=== PATIENT | male | born 1975 | race Two or more races ===

== ENCOUNTER 2019-01-20 10:59 | Observation (INO) | payer SELFPAY ==
--- NOTE | 2019-01-20 11:39 | ER Document Report ---
ED Medical Screen (RME) - General Stated Complaint: HEADACHE Time Seen by Provider: 01/20/19 11:36 Primary Care Provider: CESAR DICKINSON MD [Primary Care Provider] - Follow up as needed Mode of Arrival: Ambulatory Information source: Patient Notes: This 43-year-old male presents as a direct admit for Dr. Arzate with recurrent epistaxis and headache. Dr. Arzate has already put orders in. Patient denies suicidal or homicidal thoughts. I have greeted and performed a rapid initial assessment of this patient. A comprehensive ED assessment and evaluation of the patient, analysis of test results and completion of the medical decision making process will be conducted by additional ED providers. Dictation of this chart was performed using voice recognition software; therefore, there may be some unintended grammatical errors. - Related Data Allergies/Adverse Reactions: No Known Allergies Allergy (Verified 01/20/19 11:32) Past Medical History - Past Medical History Cardiac Medical History: Reports: Hx Hypertension GI Medical History: Reports: Hx Gastroesophageal Reflux Disease Past Surgical History: Reports: Hx Appendectomy - Immunizations Hx Diphtheria, Pertussis, Tetanus Vaccination: No Physical Exam - Vital signs Vitals: Temp Pulse Resp BP Pulse Ox 98.3 F 65 18 135/94 H 96 01/20/19 11:22 01/20/19 11:22 01/20/19 11:22 01/20/19 11:22 01/20/19 11:22 Course - Vital Signs Vital signs: Temp Pulse Resp BP Pulse Ox 98.3 F 65 18 135/94 H 96 01/20/19 11:22 01/20/19 11:22 01/20/19 11:22 01/20/19 11:22 01/20/19 11:22 Doctor's Discharge - Discharge Referrals: CESAR DICKINSON MD [Primary Care Provider] - Follow up as needed
[2019-01-20 12:40] LABS: ABSOLUTE BASOPHILS # (AUTO) 0.1 10^3/uL (0.0-0.2); ABSOLUTE EOSINOPHILS # (AUTO) 0.4 10^3/uL (0.0-0.6); ABSOLUTE LYMPHOCYTES (AUTO) 3.2 10^3/uL (0.5-4.7); ABSOLUTE MONOCYTES (AUTO) 0.6 10^3/uL (0.1-1.4); ABSOLUTE NEUT (AUTO) 3.8 10^3/uL (1.7-8.2); BASOPHILS % (AUTO) 0.7 % (0-2); EOSINOPHILS % (AUTO) 5.2 % (0-6); HEMATOCRIT 40.9 % (37.9-51.0); HEMOGLOBIN 14.1 g/dL (13.5-17.0); LYMPHOCYTES % (AUTO) 39.4 % (13-45); MEAN CORPUSCULAR HEMOGLOBIN 29.4 pg (27.0-33.4); MEAN CORPUSCULAR HGB CONC 34.5 g/dL (32.0-36.0); MEAN CORPUSCULAR VOLUME 85 fl (80-97); PLATELET COUNT 314 10^3/uL (150-450); RED CELL DISTRIBUTION WIDTH 13.5 % (11.5-14.0); SEGMENTED NEUTROPHILS % (AUTO) 47.7 % (42-78); TOTAL CELLS COUNTED % (AUTO) 100 %
[2019-01-20 13:10] LABS: ALBUMIN 4.9 g/dL (3.5-5.0); ALKALINE PHOSPHATASE 71 U/L (38-126); ANION GAP 10 (5-19); ASPARTATE AMINO TRANSFERASE 23 U/L (17-59); BILIRUBIN,DIRECT 0.1 mg/dL (0.0-0.4); BILIRUBIN,TOTAL 0.4 mg/dL (0.2-1.3); BLOOD UREA NITROGEN 16 mg/dL (7-20); CALCIUM 9.9 mg/dL (8.4-10.2); CARBON DIOXIDE 28 mmol/L (22-30); CHLORIDE 102 mmol/L (98-107); CREATINE KINASE 215 U/L (55-170); GLUCOSE 105 mg/dL (75-110); POTASSIUM 4.3 mmol/L (3.6-5.0); TOTAL PROTEIN 8.5 g/dL (6.3-8.2)
[2019-01-20] MEDS ORDERED: CHLORPHENIRAMINE MALEATE 4 MG TABLET PO PRN (15:38)
[2019-01-20] MEDS ORDERED: ACETAMINOPHEN 325 MG TABLET PO PRN (15:41)
[2019-01-20] MEDS ORDERED: ONDANSETRON HCL INJ/PF 4 MG/2 ML SDV IV PRN (15:41)
[2019-01-20] MEDS: AMLODIPINE BESYLATE 10 MG TABLET PO SCH (16:36)
[2019-01-20] MEDS ORDERED: (PENDING PHARMACY ID) (Diclofenac Sodium [Voltaren] 1 GM) TOP SCH (18:00)
--- NOTE | 2019-01-20 19:00 | RADIOLOGY REPORT (SQ) ---
EXAM DESCRIPTION: CT HEAD COMBO COMPLETED DATE/TIME: 01/20/2019 6:42 pm REASON FOR STUDY: headache COMPARISON: None. TECHNIQUE: Axial images acquired through the brain without and with intravenous contrast. Images re viewed with bone, brain and subdural windows. Additional sagittal and coronal reconstructions were g enerated. Images stored on PACS. All CT scanners at this facility use dose modulation, iterative reconstruction, and/or weight based d osing when appropriate to reduce radiation dose to as low as reasonably achievable (ALARA). [facility]: Dose Right [facility]: CareDose [facility]: Dose Right [facility]: Teradose 4D [facility]: LEID Products CONTRAST TYPE AND DOSE: contrast/concentration: Isovue 350.00 mg/ml; Total Contrast Delivered: 50.0 ml; Total Saline Delivered: 50.0 ml RENAL FUNCTION: BUN 16 creatinine 0.87. RADIATION DOSE: CT Rad equipment meets quality standard of care and radiation dose reduction techniq ues were employed. CTDIvol: 53.2 mGy. DLP: 2194 mGy-cm.. LIMITATIONS: None. FINDINGS: VENTRICLES: Normal size and contour. CEREBRUM: No masses. No hemorrhage. No midline shift. Normal buckner/white matter differentiation. No ev idence for acute infarction. No enhancing lesions. CEREBELLUM: No masses. No hemorrhage. No alteration of density. No evidence for acute infarction. No enhancing lesions. EXTRA-AXIAL SPACES: No fluid collections. No enhancing lesions. ORBITS AND GLOBE: No intra- or extraconal masses. Normal contour of globe without masses. CALVARIUM: No fracture. PARANASAL SINUSES: No fluid. Small nodules in the floor of the maxillary sinuses. SOFT TISSUES: No mass or hematoma. OTHER: No other significant finding. IMPRESSION: NORMAL BRAIN CT WITHOUT AND WITH CONTRAST. EVIDENCE OF ACUTE STROKE: NO. TECHNICAL DOCUMENTATION: JOB ID: [id number] Quality ID # [id number]: Final reports with documentation of one or more dose reduction techniques (e.g., Au tomated exposure control, adjustment of the mA and/or kV according to patient size, use of iterative reconstruction technique) 2010 [employer]- All Rights Reserved Reading location - IP/workstation name: [email or web address]
--- NOTE | 2019-01-20 20:03 | PDOC H&P ---
History of Present Illness Admission Date/PCP: 01/20/19 14:06 BECKY HINKLE MD History of Present Illness: REA ORTIZ is a 43 year old male, He came to the office for evalu ation of right nosebleed, he was in the office last week when he had epistaxis of the right nose he was treated in the office with epinephrine package with complete cessation of the bleed, on inspection of his nose at that time there was no obvious lesion the mucosa was hemorrhagic particularly around the little area of the mucosa of the nose. Patient complained of a headache , facial pain he was very anxious, he was requesting to be admitted for further evaluation. He was admitted to the hospital for further evaluation, a CAT scan of the head was obtained, it was negative for any significant lesion there is no neoplasm ,it did not show any acute pathology Past Medical History Cardiac Medical History: Reports: Hypertension GI Medical History: Reports: Gastroesophageal Reflux Disease Past Surgical History Past Surgical History: Reports: Appendectomy Social History Smoking Status: Never Smoker Frequency of Alcohol Use: None Hx Recreational Drug Use: No Drugs: None Hx Prescription Drug Abuse: No Family History Family History: Other - UNKNOWN Parental Family History Reviewed: Yes Children Family History Reviewed: Yes Sibling(s) Family History Reviewed.: Yes Medication/Allergy Home Medications: RX: Amlodipine Besylate [Norvasc 10 mg Tablet] 10 mg PO DAILY 01/20/19 RX: Chlorpheniramine Maleate [Chlor-Trimeton 4 mg Tablet] 4 mg PO Q6HP PRN 01/20/19 RX: Diclofenac Sodium [Voltaren] 1 gm TOP QID 01/20/19 RX: Metoprolol Tartrate [Lopressor 50 mg Tablet] 50 mg PO Q12 01/20/19 Allergies/Adverse Reactions: No Known Allergies Allergy (Verified 01/20/19 11:32) Review of Systems Constitutional: ABSENT: chills, fever(s), headache(s), weight gain, weight loss Eyes: ABSENT: visual disturbances Ears: ABSENT: hearing changes Nose, Mouth, and Throat: PRESENT: headache(s), other - Right nosebleed Cardiovascular: ABSENT: chest pain, dyspnea on exertion, edema, orthropnea, palpitations Respiratory: ABSENT: cough, hemoptysis Gastrointestinal: ABSENT: abdominal pain, constipation, diarrhea, hematemesis, hematochezia, nausea, vomiting Genitourinary: ABSENT: dysuria, hematuria Musculoskeletal: ABSENT: joint swelling Integumentary: ABSENT: rash, wounds Neurological: ABSENT: abnormal gait, abnormal speech, confusion, dizziness, focal weakness, syncope Psychiatric: ABSENT: anxiety, depression, homidical ideation, suicidal ideation Endocrine: ABSENT: cold intolerance, heat intolerance, menstrual abnormalities, polydipsia, polyuria Hematologic/Lymphatic: ABSENT: easy bleeding, easy bruising, lymphadenopathy Physical Exam Vital Signs: Temp Pulse Resp BP Pulse Ox 97.6 F 65 16 145/93 H 100 01/20/19 14:31 01/20/19 14:31 01/20/19 14:31 01/20/19 14:31 01/20/19 14:31 Intake & Output 01/19/19 01/20/19 01/21/19 06:59 06:59 06:59 Weight 97.6 kg General appearance: PRESENT: no acute distress, well-developed, well-nourished Head exam: PRESENT: atraumatic, normocephalic Eye exam: PRESENT: conjunctiva pink, EOMI, PERRLA. ABSENT: scleral icterus Ear exam: PRESENT: normal external ear exam Mouth exam: PRESENT: moist, tongue midline Neck exam: PRESENT: full ROM Respiratory exam: PRESENT: clear to auscultation rubi Cardiovascular exam: PRESENT: RRR, +S1, +S2 Vascular exam: PRESENT: normal capillary refill GI/Abdominal exam: PRESENT: normal bowel sounds, soft Rectal exam: PRESENT: deferred Neurological exam: PRESENT: alert, awake, oriented to person, oriented to place, oriented to time, oriented to situation, CN II-XII grossly intact Psychiatric exam: PRESENT: appropriate affect, normal mood Skin exam: PRESENT: dry, intact, warm Results Laboratory Results: 01/20/19 12:04 01/20/19 12:04 01/20/19 01/20/19 12:04 12:04 WBC 8.0 RBC 4.80 Hgb 14.1 Hct 40.9 MCV 85 MCH 29.4 MCHC 34.5 RDW 13.5 Plt Count 314 Seg Neutrophils % 47.7 Sodium 140.3 Potassium 4.3 Chloride 102 Carbon Dioxide 28 Anion Gap 10 BUN 16 Creatinine 0.87 Est GFR ( Amer) > 60 Glucose 105 Calcium 9.9 Total Bilirubin 0.4 AST 23 Alkaline Phosphatase 71 Total Protein 8.5 H Albumin 4.9 01/20/19 01/20/19 12:04 12:04 Creatine Kinase 215 H Troponin I < 0.012 Impressions: Head CT 01/20/19 11:05 IMPRESSION: NORMAL BRAIN CT WITHOUT AND WITH CONTRAST. EVIDENCE OF ACUTE STROKE: NO. Assessment & Plan - Diagnosis (1) Epistaxis Is this a current diagnosis for this admission?: Yes Plan: Patient with a nosebleed, there is no obvious active bleed at this time, ENT consultation is obtained, he probably could be seen outpatient for the evaluation, the CAT scan of the head did not demonstrate any acute pathology. (2) Headache Qualifiers: Headache type: unspecified Headache chronicity pattern: unspecified pattern Intractability: not intractable Qualified Code(s): R51 - Headache Is this a current diagnosis for this admission?: Yes
[2019-01-20] MEDS: METOPROLOL TARTRATE 50 MG TABLET PO SCH (21:08)
[2019-01-21] MEDS: AMLODIPINE BESYLATE 10 MG TABLET PO SCH (10:19)
[2019-01-21] MEDS: METOPROLOL TARTRATE 50 MG TABLET PO SCH (10:19)
--- NOTE | 2019-01-21 11:18 | EKG REPORT ---
SEVERITY:- NORMAL ECG - SINUS RHYTHM : Confirmed by: Ayala Kim 21-Jan-2019 11:18:16
[2019-01-21] MEDS ORDERED: OXYMETAZOLINE HCL 0.05% NASAL SPRAY 15 ML BOTTLE NAREB PRN (11:40)
[2019-01-21] MEDS ORDERED: BACITRACIN ZINC OINTMENT 15 GM TP SCH (13:00)
[2019-01-21 15:46] VITALS: BP 145/93
--- NOTE | 2019-01-21 18:11 | PDOC DISCHARGE SUMMARY ---
Impression - Admit/DC Date/PCP Admission Date/Primary Care Provider: 01/20/19 14:06 BECKY HIKNLE MD Discharge Date: 01/21/19 - Discharge Diagnosis (1) Epistaxis Is this a current diagnosis for this admission?: Yes (2) Headache Is this a current diagnosis for this admission?: Yes - Additional Information Discharge Diet: Regular Discharge Activity: Activity As Tolerated Referrals: BECKY HINKLE MD [Primary Care Provider] - 01/30/19 10:00 am AYDEN OVALLE DO [ASSOCIATE] - 01/28/19 9:30 am Home Medications: RX: Amlodipine Besylate [Norvasc 10 mg Tablet] 10 mg PO DAILY 01/20/19 RX: Chlorpheniramine Maleate [Chlor-Trimeton 4 mg Tablet] 4 mg PO Q6HP PRN 01/20/19 RX: Diclofenac Sodium [Voltaren] 1 gm TOP QID 01/20/19 RX: Metoprolol Tartrate [Lopressor 50 mg Tablet] 50 mg PO Q12 01/20/19 History of Present Illiness History of Present Illness: REA ORTIZ is a 43 year old male, He came to the office for evaluation of right nosebleed, he was in the office last week when he had epistaxis of the right nose he was treated in the office with epinephrine package with complete cessation of the bleed, on inspection of his nose at that time there was no obvious lesion the mucosa was hemorrhagic particularly around the little area of the mucosa of the nose. Patient complained of a headache , facial pain he was very anxious, he was requesting to be admitted for further evaluation. He was admitted to the hospital for further evaluation, a CAT scan of the head was obtained, it was negative for any significant lesion there is no neoplasm ,it did not show any acute pathology Hospital [facility] Hospital Course: Patient was admitted for the management of epistasis, headache, a CAT scan of the head was negative for any acute pathology. Patient was observed for 24 hours, there was no evidence of active bleed, patient to be discharged to follow outpatient with ENT for further evaluation if needed Physical Exam Vital Signs: Temp Pulse Resp BP Pulse Ox 98.0 F 63 16 145/93 H 100 01/21/19 15:45 01/21/19 15:45 01/21/19 15:45 01/21/19 15:45 01/21/19 15:45 Intake & Output 01/20/19 01/21/19 01/22/19 06:59 06:59 06:59 Intake Total 240 Balance 240 Weight 94.7 kg General appearance: PRESENT: no acute distress Head exam: PRESENT: atraumatic Eye exam: PRESENT: PERRLA Respiratory exam: PRESENT: clear to auscultation rubi Cardiovascular exam: PRESENT: +S1, +S2 GI/Abdominal exam: PRESENT: soft Neurological exam: PRESENT: alert, CN II-XII grossly intact Results Laboratory Results: WBC 8.0 10^3/uL (4.0-10.5) 01/20/19 12:04 RBC 4.80 10^6/uL (4.35-5.55) 01/20/19 12:04 Hgb 14.1 g/dL (13.5-17.0) 01/20/19 12:04 Hct 40.9 % (37.9-51.0) 01/20/19 12:04 MCV 85 fl (80-97) 01/20/19 12:04 MCH 29.4 pg (27.0-33.4) 01/20/19 12:04 MCHC 34.5 g/dL (32.0-36.0) 01/20/19 12:04 RDW 13.5 % (11.5-14.0) 01/20/19 12:04 Plt Count 314 10^3/uL (150-450) 01/20/19 12:04 Lymph % (Auto) 39.4 % (13-45) 01/20/19 12:04 [place] % (Auto) 7.0 % (3-13) 01/20/19 12:04 Eos % (Auto) 5.2 % (0-6) 01/20/19 12:04 Baso % (Auto) 0.7 % (0-2) 01/20/19 12:04 Absolute Neuts (auto) 3.8 10^3/uL (1.7-8.2) 01/20/19 12:04 Absolute Lymphs (auto) 3.2 10^3/uL (0.5-4.7) 01/20/19 12:04 Absolute Monos (auto) 0.6 10^3/uL (0.1-1.4) 01/20/19 12:04 Absolute Eos (auto) 0.4 10^3/uL (0.0-0.6) 01/20/19 12:04 Absolute Basos (auto) 0.1 10^3/uL (0.0-0.2) 01/20/19 12:04 Seg Neutrophils % 47.7 % (42-78) 01/20/19 12:04 Sodium 140.3 mmol/L (137-145) 01/20/19 12:04 Potassium 4.3 mmol/L (3.6-5.0) 01/20/19 12:04 Chloride 102 mmol/L (98-107) 01/20/19 12:04 Carbon Dioxide 28 mmol/L (22-30) 01/20/19 12:04 Anion Gap 10 (5-19) 01/20/19 12:04 BUN 16 mg/dL (7-20) 01/20/19 12:04 Creatinine 0.87 mg/dL (0.52-1.25) 01/20/19 12:04 Est GFR ( Amer) > 60 (>60) 01/20/19 12:04 Est GFR (MDRD) Non-Af > 60 (>60) 01/20/19 12:04 Glucose 105 mg/dL (75-110) 01/20/19 12:04 Calcium 9.9 mg/dL (8.4-10.2) 01/20/19 12:04 Total Bilirubin 0.4 mg/dL (0.2-1.3) 01/20/19 12:04 Direct Bilirubin 0.1 mg/dL (0.0-0.4) 01/20/19 12:04 Neonat Total Bilirubin Not Reportable 01/20/19 12:04 Neonat Direct Bilirubin Not Reportable 01/20/19 12:04 Neonat Indirect Bili Not Reportable 01/20/19 12:04 AST 23 U/L (17-59) 01/20/19 12:04 ALT 19 U/L (<50) 01/20/19 12:04 Alkaline Phosphatase 71 U/L (38-126) 01/20/19 12:04 Creatine Kinase 215 U/L (55-170) H 01/20/19 12:04 Troponin I < 0.012 ng/mL 01/20/19 12:04 Total Protein 8.5 g/dL (6.3-8.2) H 01/20/19 12:04 Albumin 4.9 g/dL (3.5-5.0) 01/20/19 12:04 01/20/19 12:04 Troponin I < 0.012 Impressions: Head CT 01/20/19 11:05 IMPRESSION: NORMAL BRAIN CT WITHOUT AND WITH CONTRAST. EVIDENCE OF ACUTE STROKE: NO. Plan Time Spent: Less than 30 Minutes Stroke Is this a Stroke Patient?: No Stroke Pt being discharged on Anti-thrombolytic therapy?: No Reason(s) for not prescribing Anti-thrombolytic therapy:: Not indicated Stroke Pt being discharged on Anti-coagulation therapy?: No Reason(s) for not prescribing Anti-coagulation therapy:: Not indicated Stroke Pt being discharged on Statins?: No Reason(s) for not prescribing Statins therapy:: Not indicated Acute Heart Failure - Is this a Heart Failure Patient?: No Follow-up Appointment scheduled within 7 days?: Yes
== END 2019-01-21 16:56 | disposition home or self-care (01) ==
LOC: ER 10:59 → 4N 14:06
PROVIDERS: ADMIT Internal Medicine; ATTEND Internal Medicine
DX: R04.0 Epistaxis (principal); R51 Headache; K21.9 Gastro-esophageal reflux disease without esophagitis; I10 Essential (primary) hypertension; R07.9 Chest pain, unspecified; Z82.49 Family history of ischemic heart disease and other diseases of the circulatory system
CPT/HCPCS: 93005; 99285; 36415; 82550; 85025; 80076; 80048; 84484; 70470; 93010; G0378 ×2; G0379; J3490

== ENCOUNTER 2020-05-22 18:34 | Emergency (ER) | payer BC ==
--- NOTE | 2020-05-22 19:47 | ER Document Report ---
ED Medical Screen (RME) - General Stated Complaint: CHEST PAINS Time Seen by Provider: 05/22/20 19:40 Primary Care Provider: BECKY HINKLE MD [Primary Care Provider] - Follow up as needed Mode of Arrival: Ambulatory Information source: Patient Notes: HPI; 44-year-old male with a past medical history significant for hypertension presents to the emergency room with intermittent sharp stabbing midsternal chest pain that radiates into his left arm that started earlier this morning. Complains of nausea but no vomiting. No diaphoresis. No previous cardiac history. States he took 2 baby aspirin approximately 2 hours prior to arrival. PE: Alert and oriented x3. Lungs: Clear to auscultation without rales, rhonchi, wheezes. Heart: Regular rate rhythm without murmurs, rubs, gallops. I have greeted and performed a rapid initial assessment of this patient. A comprehensive ED assessment and evaluation of the patient, analysis of test results and completion of the medical decision making process will be conducted by additional ED providers. I have specifically instructed the patient or family members with the patient to immediately return to any nursing staff should anything change in the patient's condition or with their chief complaint. TRAVEL OUTSIDE OF THE [place] IN LAST 30 DAYS: No - Related Data Allergies/Adverse Reactions: No Known Allergies Allergy (Verified 01/20/19 11:32) Past Medical History - Past Medical History Cardiac Medical History: Reports: Hx Hypertension GI Medical History: Reports: Hx Gastroesophageal Reflux Disease Past Surgical History: Reports: Hx Appendectomy - Immunizations Hx Diphtheria, Pertussis, Tetanus Vaccination: No Physical Exam - Vital signs Vitals: Temp Pulse Resp BP Pulse Ox 98.3 F 79 20 144/88 H 98 05/22/20 18:52 05/22/20 18:52 05/22/20 18:52 05/22/20 18:52 05/22/20 18:52 Course - Vital Signs Vital signs: Temp Pulse Resp BP Pulse Ox 98.3 F 79 20 144/88 H 98 05/22/20 18:52 05/22/20 18:52 05/22/20 18:52 05/22/20 18:52 05/22/20 18:52 Doctor's Discharge - Discharge Referrals: BECKY HINKLE MD [Primary Care Provider] - Follow up as needed
[2020-05-22 20:05] LABS: ABSOLUTE BASOPHILS # (AUTO) 0.1 10^3/uL (0.0-0.2); ABSOLUTE EOSINOPHILS # (AUTO) 0.4 10^3/uL (0.0-0.6); ABSOLUTE LYMPHOCYTES (AUTO) 3.5 10^3/uL (0.5-4.7); ABSOLUTE MONOCYTES (AUTO) 0.6 10^3/uL (0.1-1.4); ABSOLUTE NEUT (AUTO) 3.3 10^3/uL (1.7-8.2); BASOPHILS % (AUTO) 1.2 % (0-2); EOSINOPHILS % (AUTO) 5.7 % (0-6); HEMOGLOBIN 14.1 g/dL (13.5-17.0); MEAN CORPUSCULAR HGB CONC 34.3 g/dL (32.0-36.0); MEAN CORPUSCULAR VOLUME 87 fl (80-97); MONOCYTES % (AUTO) 7.9 % (3-13); PLATELET COUNT 319 10^3/uL (150-450); RED BLOOD COUNT 4.69 10^6/uL (4.35-5.55); RED CELL DISTRIBUTION WIDTH 13.9 % (11.5-14.0); SEGMENTED NEUTROPHILS % (AUTO) 41.2 % (42-78); TOTAL CELLS COUNTED % (AUTO) 100 %; WHITE BLOOD COUNT 7.9 10^3/uL (4.0-10.5)
[2020-05-22 20:26] LABS: ALBUMIN 4.5 g/dL (3.5-5.0); ALKALINE PHOSPHATASE 72 U/L (38-126); ASPARTATE AMINO TRANSFERASE 26 U/L (17-59); BILIRUBIN,DIRECT 0.2 mg/dL (0.0-0.4); BILIRUBIN,TOTAL 0.3 mg/dL (0.2-1.3); BLOOD UREA NITROGEN 14 mg/dL (7-20); CALCIUM 9.3 mg/dL (8.4-10.2); CARBON DIOXIDE 31 mmol/L (22-30); CHLORIDE 102 mmol/L (98-107); GLUCOSE 118 mg/dL (75-110); POTASSIUM 3.8 mmol/L (3.6-5.0); TOTAL PROTEIN 7.8 g/dL (6.3-8.2)
--- NOTE | 2020-05-22 20:40 | RADIOLOGY REPORT (SQ) ---
EXAM DESCRIPTION: XR CHEST 2 VIEWS COMPLETED DATE/TME: 05/22/2020 20:11 CLINICAL HISTORY: 44 years, Male, chest pain COMPARISON: None. NUMBER OF VIEWS: 2 TECHNIQUE: 2 views of the chest were obtained. LIMITATIONS: None. FINDINGS: The heart size is within normal limits. Lungs appear clear. There is no evidence of pleural effusion or pneumothorax. No definite acute bony abnormality is seen. IMPRESSION: No acute abnormality as above. copyright 2010 [employer]- All Rights Reserved
[2020-05-22 20:56] LABS: ANION GAP 4 (5-19)
--- NOTE | 2020-05-22 21:20 | EKG REPORT ---
SEVERITY:- NORMAL ECG - SINUS RHYTHM : Confirmed by: Jake Zavala MD 22-May-2020 21:19:45
[2020-05-23] MEDS ORDERED: KETOROLAC TROMETHAMINE INJ/PF 30 MG/1 ML SDV IV ONE (01:31)
[2020-05-23] MEDS ORDERED: METHYLPREDNISOLONE INJ 125 MG/2 ML SDV IV ONE (01:32)
--- NOTE | 2020-05-23 01:50 | ER Document Report ---
Entered by CARLENE ROBLEDO SCRIBE 05/23/20 0114 Acting as scribe for:TEOFILO HOLT IV, MD ED General - General Chief Complaint: Chest Pain Stated Complaint: CHEST PAINS Time Seen by Provider: 05/22/20 19:40 Primary Care Provider: BECKY HINKLE MD [Primary Care Provider] - Follow up as needed Mode of Arrival: Ambulatory Information source: Patient Notes: This 44-year-old male patient presents to the emergency department today with complaints of left-sided chest pain as well as numbness and tingling that goes into his left hand. 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 He mentions that he noticed the chest pain today which is why he came in to be evaluated, he has had the hand tingling for quite some time. He mentions that the tingling in his hand is worse at night. He reports the pain comes and goes and it is a dull pressure. TRAVEL OUTSIDE OF THE [place] IN LAST 30 DAYS: No - Related Data Allergies/Adverse Reactions: No Known Allergies Allergy (Verified 01/20/19 11:32) Past Medical History - General Information source: Patient - Social History Smoking Status: Never Smoker Cigarette use (# per day): No Frequency of alcohol use: None Drug Abuse: None Lives with: Family Family History: Reviewed & Not Pertinent, Other - UNKNOWN Patient has homicidal ideation: No - Past Medical History Cardiac Medical History: Reports: Hx Hypertension GI Medical History: Reports: Hx Gastroesophageal Reflux Disease Past Surgical History: Reports: Hx Appendectomy - Immunizations Hx Diphtheria, Pertussis, Tetanus Vaccination: No Review of Systems - Review of Systems Constitutional: No symptoms reported EENT: No symptoms reported Cardiovascular: See HPI, Chest pain Respiratory: No symptoms reported Gastrointestinal: No symptoms reported Genitourinary: No symptoms reported Male Genitourinary: No symptoms reported Musculoskeletal: No symptoms reported Skin: No symptoms reported Hematologic/Lymphatic: No symptoms reported Neurological/Psychological: See HPI, Numbness, Tingling -: Yes All other systems reviewed and negative Physical Exam - Vital signs Vitals: Temp Pulse Resp BP Pulse Ox 98.3 F 79 20 144/88 H 98 05/22/20 18:52 05/22/20 18:52 05/22/20 18:52 05/22/20 18:52 05/22/20 18:52 - Notes Notes: Physical Exam: General: Alert, appears well. HEENT: Normocephalic. Atraumatic. PERRL. Extraocular movements intact. Oropharynx clear. Neck: Supple. Non-tender. Respiratory: No respiratory distress. Clear and equal breath sounds bilaterally. Left anterior chest wall tenderness to palpation. Cardiovascular: Regular rate and rhythm. Abdominal: Normal Inspection. Non-tender. No distension. Normal Bowel Sounds. Back: No gross abnormalities. Extremities: Moves all four extremities. Upper extremities: Normal ROM. Positive Tinel's sign on the left. Lower extremities: Normal inspection. No edema. Normal ROM. Neurological: Normal cognition. AAOx4. Normal speech. Psychological: Normal affect. Normal Mood. Skin: Warm. Dry. Normal color. Course - Re-evaluation Re-evalutation: 05/23/20 01:33 Differential diagnosis: Chest wall pain, chest wall strain, ACS, cervical radiculopathy, carpal tunnel syndrome MDM: Given the patient's EKG appears normal and he has 2 - troponins, the pain in his chest is worse with movement and the symptoms in his left wrist and hand are also worse with movement I believe the most appropriate diagnosis is costochondritis and carpal tunnel syndrome. Plan cock-up splint for the patient and course of steroids. Patient will be given a prescription for ibuprofen 800 mg with instructions to take as needed for pain after he finishes the prednisone. Results of ED MSE discussed with patient. All questions were answered prior to discharge. Emergency signs and symptoms, reasons to return to the emergency department discussed with patient. - Vital Signs Vital signs: Temp Pulse Resp BP Pulse Ox 98.5 F 75 22 H 133/100 H 99 05/22/20 23:27 05/22/20 23:27 05/23/20 01:48 05/23/20 01:48 05/23/20 01:48 - Laboratory Results Result Diagrams: 05/22/20 19:55 05/22/20 19:55 Laboratory Results Interpreted: 05/22/20 05/22/20 19:55 19:55 Seg Neutrophils % 41.2 L Carbon Dioxide 31 H Anion Gap 4 L Glucose 118 H Critical Laboratory Results Reviewed: No Critical Results - Radiology Results Critical Radiology Results Reviewed: No Critical Results - EKG Interpretation by Me Additional EKG results interpreted by me: 05/23/20 01:35 EKG obtained on 05/22/2020 at 1846 hrs. was interpreted by this MD. Findings: Normal sinus rhythm, rate 82, normal axis, GA interval appears to be within normal limits, P waves preceding QRS complexes, QRS complexes appear narrow, QTC is 411, there are no obvious patterns of ST segment elevation, depression or reciprocal changes seen to suggest acute myocardial ischemia or infarction. When compared with prior EKG from 01/20/2019 the gross morphology of the 2 EKGs appears quite similar. Impression: Normal EKG. Procedures - Immobilization Left Wrist Time completed: 01:50 Pre-Proc Neuro Vasc Exam: Normal Immobilizer type: Cock-up Performed by: PCT Post-Proc Neuro Vasc Exam: Normal Alignment checked and good: Yes Discharge - Discharge Clinical Impression: Costochondritis, Carpal tunnel syndrome of left wrist Condition: Stable Disposition: HOME, SELF-CARE Instructions: Chest Wall Pain ([facility]) Additional Instructions: Return to the Emergency Department without delay if any worse. HOME CARE INSTRUCTIONS & INFORMATION: Thank you for choosing us for your medical needs. We hope you're satisfied with the care you received. After you leave, you must properly care for your problem and, at the same time, observe its progress. Any condition can change. Some illnesses can change rapidly over hours or days. If your condition worsens, return to the Emergency Department or see your physician promptly. ABOUT YOUR X-RAYS AND EKG'S: If you had an EKG or X-rays taken, they have been read by the Emergency Physician. The X-rays and EKG's will also be read by a Radiologist or Nurses' Registry Director within 24 hours. If discrepancies are noted, you will be notified by telephone. Please be certain the ED has a correct telephone number & address where you can be reached. Also, realize that some fractures or abnormalities do not show up on initial X-rays. If your symptoms continue, see your physician. ABOUT YOUR LABORATORY TEST: If you had laboratory tests, the results have been reviewed by the Emergency Physician. Some test results (for example cultures) may not be available for several days. You will be contacted if any test result shows you need additional treatment. Please be certain the ED has a correct telephone number and address where you can be reached. ABOUT YOUR MEDICATIONS: You will receive instructions on how to take your med icine on the prescription label you receive. Additional information may be provided by the Pharmacy. If you have questions afterwards, call the ED for clarification or further instructions. Some prescribed medications may cause drowsiness. Do not perform tasks such as driving a car or operating machinery without consulting your Pharmacist. If you feel you need a refill of pain medication, your condition will need re-evaluation. Please do not call for a refill of any medication. ABOUT YOUR SIGNATURE: Signature of this document acknowledges to followin. Understanding that you received emergency treatment and that you may be released before al medical problems are known or treated. Please be certain the ED has a correct phone number & address where you can be reached. 2. Acknowledgement that you will arrange for follow-up care as recommended. 3. Authorization for the Emergency Physician to provide information to your follow-up Physician in order to maximize your care. AT ANY TIME, IF YOUR SYMPTOMS CHANGE SIGNIFICANTLY OR WORSEN OR YOU DEVELOP NEW SYMPTOMS, RETURN TO THE EMERGENCY DEPARTMENT IMMEDIATELY FOR RE-EVALUATION. OUR GOAL IS TO PROVIDE EXCELLENT MEDICAL CARE! WE HOPE THAT WE HAVE MET YOUR EXPECTATIONS DURING YOUR EMERGENCY DEPARTMENT VISIT AND THAT YOU FEEL YOU HAVE RECEIVED EXCELLENT CARE! Carpal Tunnel Syndrome Your examination suggests carpal tunnel syndrome. This syndrome is due to pressure on a nerve in the wrist. The pressure may be caused by an old injury, hard work using the wrist, work involving repeated motions of the hand, wrist positions that keep pressure on the joint, or arthritis in the wrist. Typical symptoms are tingling, numbness, and pain in the palm, thumb, index and middle fingers, and one side of the ring finger. Often a splint, ice packs, and antiinflammatory medication make the symptoms go away. If the physician feels that your problem is chronic, you will be referred to a specialist for further care. If symptoms do not go away, c arpal tunnel syndrome may require surgery. You should call the doctor if pain increases, if you develop difficulty using the thumb or fingers, or if major swelling occurs. Prescriptions: Ibuprofen [Ibu] 800 mg PO Q8HP PRN #30 tablet PRN Reason: pain Prednisone [Deltasone 20 mg Tablet] 3 tab PO DAILY 5 Days #15 tablet Referrals: BECKY HINKLE MD [Primary Care Provider] - Follow up as needed I personally performed the services described in the documentation, reviewed and edited the documentation which was dictated to the scribe in my presence, and it accurately records my words and actions.
[2020-05-23 01:58] VITALS: BP 133/100
--- OUTSIDE RECORDS SUMMARY | 2020-05-25 09:13 | XMS REPORT ---
:1975 Author Organization [facility] Address [facility] [address] [place] [address] Care Team Providers Name Role Phone Guanakito Arzate Primary Care Physician Unavailable Allergies, Adverse Reactions, Alerts This patient has no known allergies or adverse reactions. Medications Ordered Filled Start Stop Current Ordering Indication Dosage Frequency Signature Comments Components Medication Medication Date Date Medication? Clinician (SIG) Name Name BusPIRone 2018-04 Yes BID 1 tablet HCl 10 MG 0-04 Orally 00:00: Twice a 00 day Chlorphenir Yes QID 1 tablet amine 9-16 as needed Maleate 4 00:00: Orally MG 00 every 6 hrs Metoprolol Yes BID 1 tablet Tartrate 50 9-16 with food MG 00:00: Orally 00 Twice a day Singulair Yes QD 1 tablet 10 MG 3-26 in the 00:00: evening 00 Orally Once a day Opal Yes BID 1 tablet Allergy 60 3-26 Orally MG 00:00: Twice a 00 day Voltaren 1 Yes QID as % 1-07 directed 00:00: Transderma 00 l Four times a day Amlodipine Yes QD 1 tablet Besylate 10 Orally MG Once a day Problems Condition Condition Condition Status Onset Resolution Last Treatin g Comments Name Details Category Date Date Treatment Clinician Date Anxiety Anxiety Problem Active 2018-04 disorder disorder, 0-04 unspecified 00:00: 00 Essential Essential Problem Active hypertensio (primary) 6-20 n hypertensio 00:00: n 00 Chest pain chest pain Problem Active Hypertensio Hypertensio Problem Active n n Acute sinusitis,a Problem Active sinusitis cute Procedures This patient has no known procedures. Results This patient has no known results. Assessments Condition Name Status Diagnosis Date Treating Clinici an - Essential (primary) hypertension I10 Active Ojebuoboh, [place]unle - Anxiety disorder, unspecified F41.9 Active Ojebuoboh, [place]unle - Epistaxis R04.0 Active Ojebuoboh, Ibi lexy - Essential (primary) hypertension I10 Active Ojebuoboh, Ibikunle - Epistaxis R04.0 Active Ojebuoboh, Ibi lexy - Essential (primary) hypertension I10 Active Ojebuoboh, Ibikunle - sinusitis,acute 461.9 Active Ojebuobo h, [place]ikunle - Hypertension 401.9 Active Ojebuoboh, [place]unle - Hypertension 401.9 Active Ojebuoboh, [place]le - chest pain 786.50 Active Ojebuoboh, I bikunle - Pain in joint, lower leg 719.46 Active Ojebuoboh, Ibikunle Encounters Start End Encounter Admission Attending Care Care Encounter Date/Time Date/Time Type Type Clinicians Facility Department ID 2019-01-30 2019-01-30 [facility] [id number] 00:00:00 00:00:00 PA 2019-01-20 2019-01-20 [facility] [id number] 00:00:00 00:00:00 PA PA 2019-01-12 2019-01-12 [facility] [id number] 00:00:00 00:00:00 PA PA 2016-12-18 2016-12-18 [facility] [id number] 00:00:00 00:00:00 PA PA 2016-10-16 2016-10-16 [facility] [id number] 00:00:00 00:00:00 PA PA 2016-10-16 2016-10-16 [facility] [id number] 00:00:00 00:00:00 PA PA 2012-03-11 2012-03-11 [facility] [id number] 00:00:00 00:00:00 PA PA 2011-07-23 2011-07-23 [facility] [id number] 00:00:00 00:00:00 PA PA 2011-07-02 2011-07-02 [facility] [id number] 00:00:00 00:00:00 PA PA 2011-03-12 2011-03-12 [facility] [id number] 00:00:00 00:00:00 PA PA 2010-07-24 2010-07-24 [facility] [id number] 00:00:00 00:00:00 PA PA 2010-07-24 2010-07-24 [facility] [id number] 00:00:00 00:00:00 PA PA 2010-06-22 2010-06-22 [facility] [id number] 00:00:00 00:00:00 PA PA 2010-05-05 2010-05-05 [facility] [id number] 00:00:00 00:00:00 PA PA Social History This patient has no known social history. Vital Signs Vital Name Observation Time Observation Value Comments height 2019-01-30 10:00:00 72 [in_us] weight 2019-01-30 10:00:00 218.4 [lb_av] bmi 2019-01-30 10:00:00 29.62 kg/m2 heart rate 2019-01-30 10:00:00 73 /min blood pressure systolic 2019-01-30 10:00:00 126 mm[Hg] blood pressure diastolic 2019-01-30 10:00:00 80 mm[Hg] height 2019-01-12 11:30:00 72 [in_us] weight 2019-01-12 11:30:00 217.6 [lb_av] bmi 2019-01-12 11:30:00 29.51 kg/m2 heart rate 2019-01-12 11:30:00 87 /min blood pressure systolic 2019-01-12 11:30:00 149 mm[Hg] blood pressure diastolic 2019-01-12 11:30:00 92 mm[Hg]
== END 2020-05-23 02:18 | disposition home or self-care (01) ==
LOC: ER 18:34
DX: M94.0 Chondrocostal junction syndrome [Tietze] (principal); G56.02 Carpal tunnel syndrome, left upper limb; R07.89 Other chest pain; R20.0 Anesthesia of skin; R20.2 Paresthesia of skin; I10 Essential (primary) hypertension
CPT/HCPCS: 93005; 99285; 96374; 96375; 36415; 85025; 80053; 84484; 71046; 93010; J2930; J1885